=== PATIENT | male | born 1965 | race Caucasian/White ===

== ENCOUNTER → 2017-06-23 | Outpatient (CLI) | payer OTHER | LOC: FIMAGING 19:33 | PROVIDERS: ATTEND Physical Medicine & Rehabilitation | DX: M16.0 Bilateral primary osteoarthritis of hip (principal); S76.312A Strain of muscle, fascia and tendon of the posterior muscle group at thigh level, left thigh, initial encounter; M51.36 Other intervertebral disc degeneration, lumbar region; M47.896 Other spondylosis, lumbar region ==

== ENCOUNTER 2017-08-24 05:59 | Inpatient (IN) | payer OTHER ==
--- NOTE | 2017-08-15 17:31 | GHP ---
[f rep st] PREOP HISTORY AND PHYSICAL DATE OF ADMISSION: 08/24/2017 PROBLEM: Left hip severe degenerative arthritis. HISTORY OF PRESENT ILLNESS: The patient is a 51-year-old man admitted for a left total hip arthropla sty. He 1st injured his left hip running 20 years ago. It has been gradually more painful ever sinc e. It has been quite severe in the past 1-1/2 years. He is having daily pain and night pain. Walki ng and standing are painful. His activities are very limited. He is using Aleve and Tylenol every d ay. He has tried physical therapy. He also has some chronic problems with his lower back. He has n ot had any spinal surgery. PAST MEDICAL HISTORY: Mild asthma. No history of heart disease, stents, DVT, hepatitis or bleeding disorders. He has had a suspected diagnosis of sleep apnea but he has not had a sleep study and does not use a CPAP machine. CURRENT MEDICATIONS: Metformin. Over the counter Claritin for environmental allergies. Singulair p .o. daily for asthma. DRUG ALLERGIES: None. Metal allergy: None. Latex allergy: None. SOCIAL HISTORY: The patient is a professional musician. He is . He stopped smoking cigarett es 20 years ago. He rarely drinks alcohol. FAMILY HISTORY: Unremarkable. PHYSICAL EXAMINATION: VITAL SIGNS: Height 5 feet 9-1/2 inches, weight 290 pounds, BMI 42.2. EYES: Conjunctivae and sclerae are clear. Pupils are round and reactive. MOUTH: Good oral hygiene. No loose teeth. CHEST: Clear. HEART: Regular rhythm. No murmurs. EXTREMITIES: Pertinent findings limited to his left hip. He has full hip extension and 80 degrees of flexion. External rotation 20 degrees. Internal rotation 0 degrees. Abduction 20 degrees. Most of his excess weight is in the tr unk and abdominal area. IMAGING: His films show very severe degenerative arthritis of his left hip. He is bone on bone. He has flat in his femoral head. He is 3 or 4 mm short on the left. IMPRESSION ON ADMISSION: 1. Left hip severe degenerative arthritis. 2. Treatment for asthma. 3. Obesity. PLAN: He will undergo a left total hip arthroplasty. The surgery has been described to him, sai serna the risks, complications, expectations, and recovery time. I have advised him that because of his weight he is at increased risk for complications such as dislocation, infection, nerve injury, and e keron failure of the implant. I have discussed with him the risk of dislocation, leg length inequalit y, infection, and sciatic nerve injury. He understands that he is relatively young for a total hip r eplacement, and will probably need revision surgery in his lifetime. /[id number]/MODL
[2017-08-24] MEDS ORDERED: ROPIVACAINE 0.2% 80 MG, EPINEPHrine 0.2 MG, KETOROLAC TROMETHAMINE 30 MG in BAG 0 ML IU ONE (06:00)
[2017-08-24] MEDS ORDERED: NS IV ONE (06:00)
[2017-08-24] MEDS ORDERED: POVIDONE-IODINE 20 ML in SODIUM CL IRRIG SOLUTION 500 ML IRR ONE (06:00)
[2017-08-24] MEDS ORDERED: TRANEXAMIC ACID IV ONE (06:00)
[2017-08-24] MEDS ORDERED: ceFAZolin 1 GM/5 ML SYR ONE (06:19)
--- NOTE | 2017-08-24 06:39 | PDANEPAE ---
ANE History of Present Illness 51 year old adarsh w/ PMHx of Asthma, obesity, prediabetes, DEVYN risk factors and arthritis presents for left total hip. ANE Past Medical History - Cardiovascular History Hx Hypertension: No Hx Arrhythmias: No Hx Chest Pain: No Hx Coronary Artery / Peripheral Vascular Disease: No Hx CHF / Valvular Disease: No Hx Palpitations: No - Pulmonary History Hx COPD: No Hx Asthma/Reactive Airway Disease: Yes Hx Recent Upper Respiratory Infection: No Hx Oxygen in Use at Home: No Hx Sleep Apnea: No Sleep Apnea Screening Result - Last Documented: Positive Pulmonary History Comment: QUITE 17 YRS AGO - Neurologic History Hx Cerebrovascular Accident: No Hx Seizures: No Hx Dementia: No - Endocrine History Hx Diabetes: Yes Hypothyroid: No Hyperthyroid: No Obesity: yes, moderate Endocrine History Comment: PRE DIABETIC - Renal History Hx Renal Disorders: No - Liver History Hx Hepatic Disorders: No - Neurological & Psychiatric Hx Hx Neurological and Psychiatric Disorders: No - Cancer History Hx Cancer: No - Congenital Disorder History Hx Congenital Disorders: No - GI History GERD: no Hx Gastrointestinal Disorders: No - Other Health History Other Health History: MILD ECZCEMA,ROSACIA - Chronic Pain History Chronic Pain: Yes (LOWER BACK) - Surgical History Prior Surgeries: HAND SURGERY ANE Review of Systems Review of systems is: negative Review of Systems: - Exercise capacity Exercise capacity: >=4 METS METS (RN): 4 METS ANE Patient History - Allergies Allergies/Adverse Reactions: No Known Allergies Allergy (Verified 01/29/12 08:39) - Home Medications Home medications: home medication list seen and reviewed Home Medications: Albuterol [Proventil Inhaler (RX)] 1 - 2 puffs IH DAILY PRN 01/29/12 [Last Taken Unknown] Herbals/Supplements -Info Only 1 ea PO DAILY 08/03/17 [Last Taken Unknown] Montelukast Sodium [Singulair 10 mg (*)] 10 mg PO DAILY@1800 08/03/17 [Last Taken Unknown] Multivitamins [Multivitamin (*)] 1 each PO DAILY 08/03/17 [Last Taken Unknown] metFORMIN HCL [Glucophage 500 mg (*)] 500 mg PO BIDMEAL 08/03/17 [Last Taken Unknown] - NPO status NPO Status: no food or drink >8 hours - Anes Hx Anes Hx: no prior problems - Smoking Hx Smoking Status: Former smoker Marijuana use: No - Alcohol Use Alcohol Use: Rarely - Family Anes Hx Family Anes Hx: neg - N/A Family Hx Anesthesia Complications: NONE ANE Labs/Vital Signs - Vital Signs Vital Signs: reviewed preoperatively; see RN documention for details Height: 177.8 cm Weight: 131.542 kg ANE Physical Exam - Airway Neck exam: FROM Mallampati Score: Class 2 Mouth exam: normal dental/mouth exam - Pulmonary Pulmonary: no respiratory distress - Cardiovascular Cardiovascular: regular rate and rhythym - ASA Status ASA Status: II ANE Anesthesia Plan Anesthesia Plan: MAC, spinal Total IV Anesthesia: No
[2017-08-24] MEDS ORDERED: DEXAMETHASONE 4 MG/ML VIAL IVP ONE (06:51)
[2017-08-24] MEDS ORDERED: FAMOTIDINE 20 MG TAB PO ONE (06:51)
[2017-08-24] MEDS ORDERED: ceFAZolin 2 GM/SWFI 2 GM/20 ML SYR IVP ONE (06:51)
[2017-08-24] MEDS ORDERED: ACETAMINOPHEN 325 MG TAB PO ONE (06:51)
[2017-08-24] MEDS ORDERED: LIDOCAINE 1% 2 ML INJ ID PRN (06:52)
[2017-08-24] MEDS ORDERED: LR 1,000 ML IV ONE (06:52)
--- NOTE | 2017-08-24 07:01 | PDHPUP ---
History & Physical Update H&P update statement: This history and physical update is based on an assessment of the patient which was completed after admission or registration (within 24 hours), but prior to the surgery/procedure. H&P update: H&P reviewed & patient examined, no change in patient's condition since H&P completed
[2017-08-24] MEDS ORDERED: MIDAZOLAM 2 MG/2 ML VIAL IVP ONE (07:03)
[2017-08-24] MEDS ORDERED: MIDAZOLAM 2 MG/2 ML VIAL ONE (07:04)
[2017-08-24] MEDS ORDERED: PROPOFOL/EMULSION 500 MG/50 ML BOTTLE IV ONE ×2 (07:10→08:10)
[2017-08-24] MEDS ORDERED: HYDROmorphONE/DILAUDID 1 MG/ML INJ IVP PRN (08:23)
[2017-08-24] MEDS ORDERED: fentaNYL 100 MCG/2 ML INJ IVP PRN (08:23)
[2017-08-24] MEDS ORDERED: LR 500 ML IV PRN (08:23)
[2017-08-24] MEDS ORDERED: NALOXONE HCL 0.4 MG/ML INJ IVP PRN (08:23)
[2017-08-24] MEDS ORDERED: ONDANSETRON 4 MG/2 ML VIAL IVP PRN ×2 (08:23→09:19)
[2017-08-24] MEDS ORDERED: OXYCODONE/APAP 5/325 TAB PO PRN (08:23)
[2017-08-24] MEDS ORDERED: ONDANSETRON 4 MG/2 ML VIAL ONE (08:34)
[2017-08-24] MEDS ORDERED: DEXAMETHASONE 4 MG/ML VIAL ONE (08:34)
[2017-08-24] MEDS ORDERED: PROPOFOL 200 MG/20 ML VIAL ONE (09:05)
[2017-08-24] MEDS ORDERED: ALBUTEROL 60 PUFFS/8 GM MDI IH PRN (09:18)
[2017-08-24] MEDS ORDERED: LACTULOSE 20 GM/30 ML UDCUP PO PRN (09:19)
[2017-08-24] MEDS ORDERED: PROMETHAZINE HCL 25 MG/ML INJ IVP PRN (09:19)
[2017-08-24] MEDS ORDERED: POLYETHYLENE GLYCOL 3350 17 GM PKT PO PRN (09:19)
[2017-08-24] MEDS ORDERED: DIPHENOXYLATE/ATROPINE LOMOTIL 1 TAB PO PRN (09:19)
[2017-08-24] MEDS ORDERED: diphenhydrAMINE 25 MG CAP PO PRN (09:19)
[2017-08-24] MEDS ORDERED: TEMAZEPAM 15 MG CAP PO PRN (09:19)
[2017-08-24] MEDS ORDERED: traMADol 50 MG TAB PO PRN (09:19)
[2017-08-24] MEDS ORDERED: ONDANSETRON DISINTEGRATING 4 MG TAB PO PRN (09:19)
[2017-08-24] MEDS ORDERED: BISACODYL 10 MG SUPP PR PRN (09:19)
[2017-08-24] MEDS ORDERED: NS 500 ML IV PRN (09:19)
[2017-08-24] MEDS ORDERED: METOCLOPRAMIDE 10 MG/2 ML VIAL IVP PRN (09:19)
[2017-08-24] MEDS ORDERED: MAGNESIUM HYDROXIDE 30 ML UDCUP PO PRN (09:19)
[2017-08-24] MEDS ORDERED: PROMETHAZINE HCL 25 MG SUPPR PR PRN (09:19)
--- NOTE | 2017-08-24 09:24 | POSTOPPROG ---
Post Op Note Date of Operation: 08/24/17 Surgeon: Pedro Cline Liability Claims Examiner: Manfred Nguyen/candelaria Crowe Anesthesiologist: Dr. Emile Brito Anesthesia: IV Sedation, Spinal Post-op Diagnosis: Left hip severe degenerative arthritis Procedure: Left total hip arthroplasty Inf/Abcess present in the surg proc area at time of surgery?: No EBL: 100-500
--- NOTE | 2017-08-24 10:03 | GOP ---
[f rep st] OPERATIVE REPORT DATE OF OPERATION: 08/24/2017 SURGEON: Pedro Cline MD REMEDIAL TEACHER: Manfred Nguyen and Vernon Crowe. ANESTHESIA: A combination of Marcaine, spinal, and IV sedation. ANESTHESIOLOGIST: Dr. Emile Brito. PREOPERATIVE DIAGNOSIS: Left hip degenerative arthritis. POSTOPERATIVE DIAGNOSIS: Left hip degenerative arthritis. PROCEDURE PERFORMED: 08/24/2017, a left total hip arthroplasty, Oxinium femoral head on highly cross -linked polyethylene cup liner. FINDINGS: ESTIMATED BLOOD LOSS: About 500 mL. His size and the difficult exposure caused more bleeding than a verage. DESCRIPTION OF PROCEDURE: The patient was given 2 g of IV Ancef preoperatively within 60 minutes of surgery. He also received IV tranexamic acid at a dose of 20 mg/kg. He was placed on the operating room table and given spinal anesthesia with Marcaine by Dr. Emile Brito. He was then placed supin e and given IV sedation. A Crocker catheter was not used. He wore a DANIEL stocking and SCD on the nonop erative leg. He was rolled to the right lateral decubitus position. The position was secured with t he pegboard table attachment. An axillary roll was used, and all pressure points were carefully padd ed. I was careful to lock his pelvis in a rigid vertical position. His perineum was isolated with p lastic adhesive drapes. The left hip and left lower extremity were prepped with ChloraPrep. They we re draped free using sterile sheets, stockinette, and Ioban plastic drapes. The World Health Organization time-out was performed to verify the correct surgical side and site and the correct patient identity. The [place] time-out was also performed. I made a 6-inch straight oblique posterolateral hip skin incision. Subcutaneous tissues were sharply divided, and hemostasis was obtained using electrocautery. Positioning and exposure were difficult. His BMI was 42.2. His fascia lenore was identified and split along the axis of its fibers. I then c urved posteriorly and proximally, and split the fascia of the gluteus neyda and then bluntly split the muscle fibers in line with their orientation. The Charnley self-retaining retractor was inserted . His sciatic nerve was located, partially exposed, and protected throughout the procedure. The ext ernal rotators and the posterior hip capsule were divided as separate layers at the base of the femor al neck, tagged, and reflected posteriorly. A smooth 8-inch Steinmann pin was inserted vertically in to the ilium, superior to the acetabulum. An 8-inch drill bit was inserted vertically into the great er trochanter and parallel to the first pin. The distance between the 2 was measured for leg length reference. His femoral head was dislocated posteriorly. Severe degenerative changes were present in his femoral head. The femoral neck was osteotomized at the appropriate level and inclination. He h ad a large amount of acutely inflamed and hypertrophic synovium within the hip joint. I was careful to preserve all the posterior capsule and most of the anterior capsule. The remnant of his damaged labrum was excised. I prepared the femur first. This allowed me to tape controlled machine stitcher the amount of natural femoral neck anteversion. This, in turn, allowed me to later determine the correct amount of cup anteversion. He had approxi mately 10 degrees of natural femoral neck anteversion. The canal was opened laterally with a box chi kin. I reamed and broached sequentially up to a size 16. I used a size 16 high offset broach as a t rial stem. I was careful to lateralize adequately. Appropriate retractors were inserted to expose the acetabulum. The acetabulum was reamed sequentiall y up to 55 mm. He had 2 cysts in the superior acetabulum. These were curetted down to healthy bone. I created a slurry of bone graft by reaming the cut surface of the removed femoral head and neck. The bone graft was packed into the cyst. I selected a 56 mm Ventura and Nephew R3 solid-backed hemisph erical shell. This was tapped securely into place in the proper degree of inclination and anteversio n. I used the transverse acetabular ligament and other acetabular bony landmarks to help me properly orient the cup. A screw-in metal dome hole plug was used. I performed a series of trial reductions to determine length and stability. I concluded that the siz e 16 stem with the -3 neck length, a 36 mm head and a 20 degree lip trial liner gave me the proper co mbination of appropriate length and good anterior and posterior stability. He was a few millimeters short and I was intentionally lengthening him. I used the high offset stem because it gave me better stability. The 20 degree lipped Ventura and Nephew R3 highly cross-linked polyethylene liner was inserted and carolina ed securely into place. I dialed the overhang so that it was directly posterior. I selected a Ventura and Nephew Synergy stem in a size 16 with high offset. This was inserted press-fit and was a very t ight fit. I did 1 final trial reduction and confirmed that the -3 mm neck length with a 36 mm head w as the proper combination. The Ventura and Nephew Oxinium head with an outside diameter of 36 mm and a neck length of -3 mm was tapped securely onto the clean trunnion. The acetabulum was irrigated, yvette aned, and the hip was reduced 1 final time. He had excellent anterior and posterior stability and ap propriate lengthening. 40 mL of the joint anesthetic cocktail were injected in the capsule, the deep musculature, and subcut aneous tissues around the skin edges. The joint was thoroughly irrigated 1 final time with a dilute Betadine solution. His sciatic nerve was reinspected and looked unharmed. The external rotators and the posterior hip capsule were repaired in separate layers with #2 FiberWir e sutures through drill holes in the greater trochanter. This provided a strong posterior capsular a nd external rotator repair. The fascia lenore was closed first with several interrupted kunpsz-lr-rner t #2 FiberWire sutures followed by a running #2 barbed Ethicon Stratafix PDO suture. Subcutaneous ti ssues were closed with a running 0 barbed Ethicon Stratafix Monoderm suture. The skin was closed wit h a running 3-0 barbed Ethicon Stratafix Monoderm subcuticular suture. The skin edges were reapproxi mated and sealed with Dermabond glue. The wound was covered with a strip of Telfa, and everything wa s held in place with a piece of clear plastic Tegaderm. A long-leg DANIEL stocking and SCD were applied to his left lower extremity. He wore a stocking and SCD on the opposite leg during the procedure. An abduction pillow was placed between his knees. He was awakened from anesthesia and rolled to the supine position on his [facility]. He was taken to PACU in satisfactory condition. There were no recognized intraoperative complications. COUNTS: The sponge and needle count were correct on 2 occasions. IMPLANTS: I used a Ventura and Nephew R3 hemispherical solid-backed acetabular shell with an outside d iameter of 56 mm. The liner was a Ventura and Nephew R3, 20 degree lipped highly cross liner with an i nside diameter of 36 mm. The femoral component was a high offset Ventura and Nephew Synergy stem in a size 16 and press-fit. The femoral head was a Ventura and Nephew Oxinium head with a -3 mm neck length and a 36 mm outside diameter. Manfred Nguyen and Vernon Crowe acted as surgical assistants. Their assistance was a medical necess ity for safe completion of the procedure. Copy requested to: Althea Landeros /[id number]/MODL
[2017-08-24] MEDS ORDERED: ALBUTEROL 200 PUFFS/18 GM MDI IH PRN (10:27)
[2017-08-24] MEDS: ACETAMINOPHEN 325 MG TAB PO SCH ×3 (11:23→23:38)
[2017-08-24] MEDS: MONTELUKAST SODIUM 10 MG TAB PO SCH (11:24)
[2017-08-24] MEDS: oxyCODONE IR 5 MG TAB PO PRN ×4 (11:25→21:04)
[2017-08-24] MEDS: LR 1,000 ML IV SCH ×2 (11:29→21:03)
[2017-08-24] MEDS: CETIRIZINE 10 MG TAB PO SCH (11:29)
[2017-08-24] MEDS: ceFAZolin 2 GM/DEXTROSE 100 ML IV SCH ×2 (13:33→21:03)
--- NOTE | 2017-08-24 16:25 | POSTANESTH ---
Post Anesthetic Evaluation Cardiovascular Status: Normal, Stable, Similar to Pre-Op Cond Respiratory Status: Normal, Stable, Similar to Pre-op Cond. Level of Consciousness/Mental Status: Can Participate in Eval, Alert and Oriented Pain Control: Adequate, Prn Tx Ordered Nausea/Vomiting Control: Adequate, Prn Tx Ordered Complications Possibly Related to Anesthesia: None Noted
[2017-08-24] MEDS: metFORMIN HCL 500 MG TAB PO SCH (17:40)
[2017-08-24] MEDS ORDERED: MONTELUKAST SODIUM 10 MG TAB PO SCH (18:00)
[2017-08-24] MEDS: CYCLOBENZAPRINE 10 MG TAB PO PRN (18:59)
[2017-08-24] MEDS: KETOROLAC 30 MG/1 ML SDV IVP PRN (18:59)
[2017-08-24] MEDS: ASPIRIN 325 MG TAB PO SCH (21:03)
[2017-08-24] MEDS: SENNOSIDES/DOCUSATE SODIUM TAB PO SCH (21:03)
[2017-08-24] MEDS: FAMOTIDINE 20 MG TAB PO SCH (21:03)
[2017-08-25] MEDS: KETOROLAC 30 MG/1 ML SDV IVP PRN ×2 (02:04→12:46)
[2017-08-25] MEDS: ACETAMINOPHEN 325 MG TAB PO SCH ×2 (05:01→12:45)
[2017-08-25] MEDS: oxyCODONE IR 5 MG TAB PO PRN (05:02)
[2017-08-25] MEDS: CYCLOBENZAPRINE 10 MG TAB PO PRN ×2 (05:03→12:46)
[2017-08-25 05:06] VITALS: O2SAT 97
--- NOTE | 2017-08-25 07:29 | SOAPPROG ---
SOAP Progress Note Assessment/Plan: Assessment: Afebrile. Awake and alert. Moderate pain. He had an episode of postural hypotension yesterday. He has been up and walking in the room. Sciatic nerve intact. Dressing is dry. H&H is good. Postop films look excellent. Plan: Up with physical therapy today. Discharged later today. 08/25/17 07:28 Objective: Vital Signs Temp Pulse Resp BP Pulse Ox 37.0 C 82 18 145/81 H 97 08/25/17 04:00 08/25/17 04:00 08/25/17 04:00 08/25/17 04:00 08/25/17 04:00 Laboratory Results 08/25/17 05:11 08/24/17 08/25/17 08/26/17 05:59 05:59 05:59 Intake Total 1750 Output Total 1650 Balance 100 ICD10 Worksheet Patient Problems: Problems Problem Status Onset Osteoarthritis of left hip Acute
[2017-08-25 07:42] VITALS: BP 129/82; PULSE 89; RESP 16; TEMP 98
--- NOTE | 2017-08-25 08:02 | GDS ---
[f rep st] DISCHARGE SUMMARY ADMISSION DIAGNOSIS: Left hip severe degenerative arthritis. DISCHARGE DIAGNOSIS: Left hip severe degenerative arthritis. OPERATION PERFORMED: 08/24/2017, left total hip arthroplasty. POSTOPERATIVE COMPLICATIONS: None. CONDITION ON DISCHARGE: Improved. HOSPITAL COURSE: The patient was admitted to the hospital on morning of surgery. His admission CBC, electrolytes, BUN, creatinine were all normal. The same day, under combination of Marcaine, spinal, and IV sedation, he underwent a left total hip arthroplasty. Postoperatively, he was treated with m ultimodal DVT prophylaxis. On the 1st postoperative day, his hemoglobin and hematocrit were 13.4 and 39.0. He was seen by Physical Therapy, made excellent progress. DISPOSITION: Patient discharged to his home. He will go to outpatient physical therapy in my office next week. He will be 50% weightbearing on the left for 3 weeks. Use an abduction pillow in bed fo r 3 weeks. DANIEL hose for 3 weeks. He has prescriptions for oxycodone and tramadol for pain control. Continue aspirin 325 mg p.o. daily for 21 days. I will see him back in the office on 09/12/2017. I f there are any problems, he is to call me at the office. /[id number]/MODL
[2017-08-25] MEDS: FAMOTIDINE 20 MG TAB PO SCH (08:46)
[2017-08-25] MEDS: MONTELUKAST SODIUM 10 MG TAB PO SCH (08:46)
[2017-08-25] MEDS: metFORMIN HCL 500 MG TAB PO SCH (08:46)
[2017-08-25] MEDS: SENNOSIDES/DOCUSATE SODIUM TAB PO SCH (08:46)
[2017-08-25] MEDS: ASPIRIN 325 MG TAB PO SCH (08:46)
[2017-08-25] MEDS: CETIRIZINE 10 MG TAB PO SCH (08:50)
[2017-08-25] MEDS ORDERED: FERROUS SULFATE 140 MG TAB.ER PO SCH (09:00)
--- NOTE | 2017-08-25 14:21 | ASDISCHSUM ---
Discharge Information Plan Status:Home with No Needs Medically Cleared to Leave: Discharge Date:08/25/2017 01:48 PM CM D/C Disposition:Home, Routine, Self-Care ADT D/C Disposition:Home, Routine, Self-Care Projected Discharge Date:08/25/2017 01:48 PM Transportation at D/C: Discharge Delay Reason: Follow-Up Date:08/25/2017 01:48 PM Discharge Slot: Final Diagnosis: Placement Information Patient Contact Information Contact Name:TONG Relationship: Address:[address] City:[place] Alternate Phone: [facility]/Zip Code:[place] [address] Email: Financial Information Financial Class:HMO and PPO Plans Primary Plan Desc:[facility] Primary Plan Number:[id number] Secondary Plan Desc: Secondary Plan Number: Assessment Information CM Environmental Programs Specialist Assessment CJR Did you go to joint Answers: No (why?) Notes: Asa has watched the class? online video CM Note CM Note Notes: Asa will be discharing home, independently of CM needs. He has set up his first outpatient physical therapy and does not believe he will be needing any home care or additional services. His ztccyr-xp-eop will be getting him a walker and he has put in an order for the recommended ice machine. Adebayo has had his pre-op and a consult regarding potential for blood clots. One of his medications has been filled, and he is waiting on 2 other narcotics, but is expecting to get them the day of surgery. Adebayo did not attend the joint class, but he has watched the online video and is prepared. Date Signed: 08/18/2017 12:41 PM Electronically Signed By:Micki Bear [facility] CM Progress Note CM Note CM Note Notes: Therapies clear pt for home, will f/u w outpatient PT. Pt medically stable for d/c, no CM d/c needs identified. Date Signed: 08/25/2017 02:20 PM Electronically Signed By:RUDDY Green Intervention Information
--- NOTE | 2017-08-25 14:21 | ASDISCHSUM ---
Discharge Information Plan Status:Home with No Needs Medically Cleared to Leave: Discharge Date:08/25/2017 01:48 PM CM D/C Disposition:Home, Routine, Self-Care ADT D/C Disposition:Home, Routine, Self-Care Projected Discharge Date:08/25/2017 01:48 PM Transportation at D/C: Discharge Delay Reason: Follow-Up Date:08/25/2017 01:48 PM Discharge Slot: Final Diagnosis: Placement Information Patient Contact Information Contact Name:TONG Relationship: Address:[address] City:[place] Alternate Phone: [facility]/Zip Code:[place] [address] Email: Financial Information Financial Class:HMO and PPO Plans Primary Plan Desc:[facility] Primary Plan Number:[id number] Secondary Plan Desc: Secondary Plan Number: Assessment Information CM Explosive Ordnance Disposal Specialist Assessment CJR Did you go to joint Answers: No (why?) Notes: Asa has watched the class? online video CM Note CM Note Notes: Asa will be discharing home, independently of CM needs. He has set up his first outpatient physical therapy and does not believe he will be needing any home care or additional services. His ocbquq-ao-fhm will be getting him a walker and he has put in an order for the recommended ice machine. Adebayo has had his pre-op and a consult regarding potential for blood clots. One of his medications has been filled, and he is waiting on 2 other narcotics, but is expecting to get them the day of surgery. Adebayo did not attend the joint class, but he has watched the online video and is prepared. Date Signed: 08/18/2017 12:41 PM Electronically Signed By:Micki Bear [facility] CM Progress Note CM Note CM Note Notes: Therapies clear pt for home, will f/u w outpatient PT. Pt medically stable for d/c, no CM d/c needs identified. Date Signed: 08/25/2017 02:20 PM Electronically Signed By:RUDDY Green Intervention Information
--- NOTE | 2017-08-25 14:21 | ASDISCHSUM ---
Discharge Information Plan Status:Home with No Needs Medically Cleared to Leave: Discharge Date:08/25/2017 01:48 PM CM D/C Disposition:Home, Routine, Self-Care ADT D/C Disposition:Home, Routine, Self-Care Projected Discharge Date:08/25/2017 01:48 PM Transportation at D/C: Discharge Delay Reason: Follow-Up Date:08/25/2017 01:48 PM Discharge Slot: Final Diagnosis: Placement Information Patient Contact Information Contact Name:TONG Relationship: Address:[address] City:[place] Alternate Phone: [facility]/Zip Code:[place] [address] Email: Financial Information Financial Class:HMO and PPO Plans Primary Plan Desc:[facility] Primary Plan Number:[id number] Secondary Plan Desc: Secondary Plan Number: Assessment Information CM Internet Marketing Intern Assessment CJR Did you go to joint Answers: No (why?) Notes: Asa has watched the class? online video CM Note CM Note Notes: Asa will be discharing home, independently of CM needs. He has set up his first outpatient physical therapy and does not believe he will be needing any home care or additional services. His rxyudw-ae-hpy will be getting him a walker and he has put in an order for the recommended ice machine. Adebayo has had his pre-op and a consult regarding potential for blood clots. One of his medications has been filled, and he is waiting on 2 other narcotics, but is expecting to get them the day of surgery. Adebayo did not attend the joint class, but he has watched the online video and is prepared. Date Signed: 08/18/2017 12:41 PM Electronically Signed By:Micki Bear [facility] CM Progress Note CM Note CM Note Notes: Therapies clear pt for home, will f/u w outpatient PT. Pt medically stable for d/c, no CM d/c needs identified. Date Signed: 08/25/2017 02:20 PM Electronically Signed By:RUDDY Green Intervention Information
== END 2017-08-25 13:48 | disposition home or self-care (01) | DRG 470 ==
LOC: F3N 05:59
PROVIDERS: ADMIT Orthopaedic Surgery; ATTEND Orthopaedic Surgery
PROC: 0SRB0JZ Replacement of Left Hip Joint with Synthetic Substitute, Open Approach (ICD-10-PCS; principal; 2017-08-24 07:15)
DX: M16.12 Unilateral primary osteoarthritis, left hip (principal); Z68.41 Body mass index [BMI] 40.0-44.9, adult; J45.909 Unspecified asthma, uncomplicated; E66.9 Obesity, unspecified; Z87.891 Personal history of nicotine dependence
CPT/HCPCS: 97116-GP; 97161-GP; 97165-GO; J0171; J0690; J1100; J1885; J2250; J2405; J2704; J2795